=== PATIENT | male | born 1965 | race Caucasian/White ===

== ENCOUNTER 2020-01-05 16:00 | Outpatient (RCR) | payer OTHER, SELFPAY ==
--- NOTE | 2019-12-29 16:00 | HP.PTEVAL_ITS ---
Patient's Visit Information HARMONY REDDY is a 54 year old M referred to Physical Therapy by KIMI FELDMAN with a diagnosis of arthrits psoriatic. Date of Evaluation: 12/29/19 Physical Therapist: Reid Moreno, DENEENT, OCS, CSCS - Visit Plan Frequency: 3x /Week Duration: 4-6 Weeks Plan: 3x/week for 4-6 weeks for pool based... HS, piriformis, quad and pec stretching. postural and RC and hip, core knee strengthening. General ex adn Motion ex in water and progression to I. - Subjective Psoriatic arthritis. Neck hurts from arthiritis. LB has 3 spots and hips and R foot hurts. Had pains for a long time chronic. was doing therapy in [facility] and they shut down when Covid started. He had to stop a lot of treatments including water ex. Today is a good day. Gets IV at [facility] for [facility] every 6 weeks. [place] like shit for long time but today is OK. Can't walk a lot due to R foot pain. Neck pain to 09/10 into L scapula creating L arm numbness. Not bad today. LBP see chirpractor but was very bad prior toward 03/12. Acupunture helps also. Hips: L painful laterally , R one not as much. R foot hurts also intermittently to 10/10 and has history of foot fusion surgery. Sleep is never great as he worked 3rd shift, retired from [employer] as he worked with [employer]. Shoulders sometimes wake him up. Basic ADLs are getting done, if in a lot of pain can need help. Hobbies: computer in bed alot - Pain LBP Pain Intensity (Out of 10): 0 Pain Intensity Range: 0, 8 Neck pain Pain Intensity (Out of 10): 0 Pain Intensity Range: 0, 4 - Objective Ambulates I but limps on R foot, trasnfers I. steps with UE pulling himself up. Cervical AROM is full and painfree today. Low back AROM mod limitations ext adn flexion, Min in SB. Not painful. reflexes 2/3 patella and achilles and bi and tri. Sensation WNL to gross light touch in UE and LE. strength R ankle PF 3-, DF painful and 3/5, No aROM into ev/inv R ankle. L ankle 4-/5. knees $ r ext adn 4+ flexion, L knee ext 4- adn 4 flexion. hips 4- abd and ext and has some pain laterally. UE aROM WFL and pain with long lever arm resisted flexiona dn abduction, otherwise does well with 4/5 strength. Tightness in piriformis and quads moderately, HS minimally, gastroc B moderately - Balance Scores Functional Gait Assessment Score: 23 % Disability: 23.3400 - Goals Goal 1:: I approp HEp in pool of community to minimize future problems Goal Time Frame: 4-6 Weeks Goal 2:: Pt feel 75% better with pain no greater than 3/10 Goal Time Frame: 4-6 Weeks Goal 3:: LEFS score 40 or hgiher. Goal Time Frame: 4-6 Weeks - Rehabilitation Potential Physical Therapy Diagnosis: widespread pain Rehabilitation Potential: Fair - Anticipated Interventions Patient/Client Instruction: Educate patient on: Condition, Plan of Care For the Purpose of:: To decrease pain, To increase ROM, To improve muscle performance and motor function, To increase tolerance to act ivity/condition/position Therapeutic Exercise to Include: Strength training, Postural training, Flexibilty training, Gait and locomotor training, Neuromotor development, In an aquatic setting, Passive ROM, Active ROM, Dynamic Lumbar Stabilization For the Purpose of:: To decrease pain, To increase ROM, To improve muscle performance and motor function, To increase tolerance to activity/condition/position Thank you for the opportunity to evaluate your patient. For Medicare and Medicare HMO plans, please review the plan of care and approve it. It will need to be FAXED BACK to us at [phone] for Medicare purposes. For Medicare only, by signing this I certify the plan of care. Please let me know if there are questions or concerns regarding this plan of care. Physician Signature: Date:
--- NOTE | 2020-01-11 13:18 | HP.PT.NRP ---
HARMONY REDDY was seen in my office for initial evaluation on 12/29/19. The following Plan of Care was established for this patient: Initial Frequency: 3x /Week Initial Duration: 4-6 Weeks Patient/Client Instruction: Educate patient on: Condition, Plan of Care For the Purpose of:: To decrease pain, To increase ROM, To improve muscle performance and motor function, To increase tolerance to activity/condition/position Therapeutic Exercise to Include: Strength training, Postural training, Flexibilty training, Gait and locomotor training, Neuromotor development, In an aquatic setting, Passive ROM, Active ROM, Dynamic Lumbar Stabilization For the Purpose of:: To decrease pain, To increase ROM, To improve muscle performance and motor function, To increase tolerance to activity/condition/position This patient was last seen in our office 01/05/20. Pertinent comments regarding their Physical therapy will appear below: Pt seen for two visits of POC and has called to cancel the rest of his visits. He will not be returning. At this point I will be discontinuing this patient from physical therapy. I would be happy to see this patient again in the future if found appropriate by the physician. Thank you! Reid Moreno, DPT, OCS, CSCS
== END 2020-01-05 19:00 | disposition home or self-care (01) ==
LOC: PT 16:00
PROVIDERS: PCP Family Medicine
DX: L40.50 Arthropathic psoriasis, unspecified (principal)
CPT/HCPCS: 97113; 97162

== ENCOUNTER 2020-11-08 11:24 | Emergency (ER) | payer OTHER, SELFPAY ==
[2020-11-08 11:25] VITALS: BP 116/86; PULSE 86; RESP 15; TEMP 36.7; O2SAT 98; BMI 28.7
--- NOTE | 2020-11-08 11:38 | CT_ITS ---
STUDY: CT CERVICAL SPINE WITHOUT CONTRAST REASON FOR EXAM: Male, 55 years old. Injury/Pain following a fall. RADIATION DOSAGE (If Supplied By Facility): CTDIvol = ( 29.31 ) mGy, DLP = ( 1292.06 ) mGycm TECHNIQUE: High resolution transaxial imaging was performed without contrast material. Sagittal and coronal images were reconstructed. Individualized dose optimization techniques were used for this CT. COMPARISON: None FINDINGS: Normal craniovertebral junction. Normal anterior atlantoaxial articulation. Normal odontoid process. There is straightening of the normal cervical lordosis. Normal vertebral bodies and posterior osseous elements. C2-3: Normal endplates. Normal disc height and morphology. Normal central canal and intervertebral neuroforamina. C3-4: Facet joint osteoarthritis and hypertrophy worse on the left side. Minimal left neural foraminal stenosis. C4-5: Facet joint osteoarthritis and hypertrophy more prominent on the right side. Mild to moderate degree of right neural foraminal stenosis. C5-6: There is a marked degree of disc space narrowing with spondylosis. Uncovertebral arthrosis. Moderate to severe bilateral neural foraminal stenosis worse on the left side. C6-7: Marked degree of disc space narrowing with facet joint osteoarthritis and spondylosis. No significant stenosis seen. There is a 4.1 cm cyst in the posterior aspect of the C6 vertebrae on the left side. C7-T1: Normal endplates. Normal disc height and morphology. Normal central canal and intervertebral neuroforamina. Normal visualized soft tissue structures. CT/Spine Cervical without Contras IMPRESSION: Multilevel degenerative changes, as described above. Electronically Signed: Khurram Saldana MD at 12:17 EDT , Service support ,
--- NOTE | 2020-11-08 11:38 | RAD_ITS ---
STUDY: X-RAY - RIGHT FOOT CLINICAL: Male, 55 years old. Injury/Pain TECHNIQUE: 3 view(s) of the foot. COMPARISON: None. FINDINGS: Normal talus, calcaneus, and tarsal bones. The patient is status post screw fixation of the talotibial navicular joint as well as the table cuneiform joint. Normal metatarsi. Normal metatarsophalangeal joint of the great toe. Normal tibial and fibular sesamoid bones. Normal interphalangeal joint of the great toe. Normal phalanges of the great toe. Normal second through fifth metatarsophalangeal joints. Normal interphalangeal joints and phalanges of the lesser toes. The soft tissue structures are unremarkable. RAD/Foot min 3 Views IMPRESSION: No acute abnormality is seen. Electronically Signed: Khurram Saldana MD at 12:20 EDT , Service support ,
--- NOTE | 2020-11-08 11:38 | RAD_ITS ---
STUDY: X-RAY - RIGHT ANKLE REASON FOR EXAM: Male, 55 years old. Injury/Pain TECHNIQUE: 3 view(s) of the ankle. COMPARISON: None. FINDINGS: Normal visualized distal tibia and fibula. Normal medial and lateral malleoli. Normal tibiotalar articulation and ankle mortise. Normal visualized talus and calcaneus. Status post fusion and screw fixation of the table navicular and talar cuneiform bones. Lateral soft tissue swelling. RAD/Ankle min 3 Views IMPRESSION: Lateral soft tissue swelling. Prior fusion as described. Electronically Signed: Khurram Saldana MD at 12:21 EDT , Service support ,
--- NOTE | 2020-11-08 11:38 | RAD_ITS ---
STUDY: X-RAY - RIGHT SHOULDER REASON FOR EXAM: Male, 55 years old. Injury/Pain TECHNIQUE: 4 view(s) of the shoulder. COMPARISON: None. FINDINGS: There is moderate degenerative arthrosis of the glenohumeral articulation. There is hypertrophic osteoarthrosis of the acromioclavicular joint with inferior osseous spur formation. Normal acromion. Decreased distance between the humeral head in the acromion suggestive of rotator cuff pathology. Normal humeral head and visualized proximal humerus. The soft tissue structures are unremarkable. Normal visualized pulmonary apex. RAD/Shoulder min 2 Views IMPRESSION: Degenerative changes. Findings suggestive of rotator cuff pathology. Electronically Signed: Khurram Saldana MD at 12:19 EDT , Service support ,
--- NOTE | 2020-11-08 11:41 | ED.VIS.FALL ---
HPI HPI - Fall History of Present Illness Chief Complaint: Fall Informant: patient and spouse/S.O. Narrative Narrative: Patient is a 55-year-old male with history of psoriatic arthritis presenting for injuries after fall. Patient was getting out of the car and the [facility] when he tripped and fell. That he did hit his head and thinks he lost consciousness for couple seconds. He broke his glasses from when he hit his head. He is complaining of pain and swelling around his right eye as well as pain of his right shoulder, right elbow and right ankle/foot. He notes he had surgery on his foot about 30 years ago and his proximal foot bones are fused together and he has a chronic deformity of his ankle joint. Patient has pain with range of motion of his ankle and swelling which is new. He notes he has chronic deformity/swelling of the top of his foot. He denies associated numbness or tingling. Is not any blood thinners. Is not sure his last tetanus was. No other complaints at this time. Patient states he is currently on a course of prednisone for flare of his arthritis. Tetanus Immunization: Unknown [facility] Medical History Fatty liver Home Medications cyclobenzaprine 10 mg PO QHS 11/08/20 [History Last Taken Unknown] diclofenac sodium ea TOPICAL 11/08/20 [History Last Taken Unknown] lisinopril 20 mg PO DAILY 11/08/20 [History Last Taken Unknown] oxycodone-acetaminophen [Percocet] 1 tab PO Q6H PRN 3 Days #12 tab 11/08/20 [Rx Last Taken Unknown] paroxetine HCl 30 mg PO DAILY 11/08/20 [History Last Taken Unknown] prednisone 10 mg PO DAILY 11/08/20 [History Last Taken Unknown] sulfasalazine 0.5 g PO BID 11/08/20 [History Last Taken Unknown] tamsulosin 0.4 mg PO DAILY 11/08/20 [History Last Taken Unknown] Allergy/AdvReac Type Severity Reaction Status Date / Time adhesive Allergy Rash Verified 11/08/20 11:27 adhesive tape Allergy Hives Verified 11/08/20 11:27 Surgical History H/O rotator cuff surgery History of ankle surgery History of umbilical hernia repair Social History Smoking Status: Never smoker ROS ROS ED Constitutional Constitutional ED: Reports frequent falls; Denies fever(s) Eyes Eyes: Denies change in vision or eye pain ENT ENT ED: Denies dental pain, mouth lesions or nasal trauma Cardiovascular Cardiovascular: Denies chest pain or syncope Respiratory/Chest Respiratory/Chest: Denies cough or dyspnea Gastrointestinal Gastrointestinal: Denies abdominal pain or nausea Genitourinary Genitourinary ED: Denies dysuria or hematuria Musculoskeletal Musculoskeletal: Reports arthralgias, myalgias and other Details: Right shoulder, elbow, ankle and foot ; Denies back pain Integumentary Reports Abrasions; Denies wounds Neurologic Neurologic: Denies headache(s), paresthesias or weakness Psychiatric Psychiatric: Denies anxiety or depression Hematologic/Lymphatic Hematologic/Lymphatic: Denies easy bleeding or easy bruising EXAM Physical Exam Const Vital Signs: 11/08/20 11:25 11/08/20 11:32 Temperature 98.1 F Temperature Source Temporal Pulse Rate 86 Respiratory Rate 15 Respiratory Effort Normal Respiratory Depth Normal Respiratory Pattern Normal Blood Pressure 116/86 H Blood Pressure Mean 96 Pulse Ox 98 Oxygen Delivery Method Room Air Room Air HEENT Reports normocephalic and TM's clear trauma Tympanic Membrane ED: Yes TM's clear Eyes PERRL and EOMs intact bilaterally Eyes Narrative: Mild swelling and bruising of the right lateral periorbital area Neck full ROM and supple General: Negative for tenderness Chest Wall inspection of chest normal and palpation of chest normal Resp normal respiratory effort and clear to auscultation bilaterally Cardio regular rate and regular rhythm Cardio Narrative: 2+ bilateral DP and PT pulses GI non-tender Palpation: soft Back/Spine Cervical Spine: Negative for cervical spine tenderness Thoracic Spine / Upper Back: Negative for thoracic spinal tenderness Lumbar Spine / Lower Back: Negative for lumbar spinal tenderness Extremity normal capillary refill Extremity Narrative: Diffuse tenderness palpation of the right shoulder. Patient unable to raise his arm through range of motion secondary to pain. Mild tenderness palpation diffusely of the right elbow but no pain with complete range of motion. Tender to palpation of the right medial ankle with some associated soft tissue swelling. Tenderness palpation diffusely of the proximal dorsal foot. No obvious deformity. No tenderness palpation of the knee or proximal fibula. chronic appearing changes of the forefoot from prior surgery. Normal Barclay test. General Extremety ED: Yes normal exam except as noted General Extremity: normal exam except as noted Skin Skin Narrative: Scattered abrasions over right knee and right elbow MDM MDM MDM Narrative Medical decision making narrative: Patient evaluated after mechanical fall. He did hit his head. Is not on any anticoagulation however he did have questionable loss of consciousness for couple seconds. Head CT obtained which does not show any acute intracranial process. No acute fracture seen on and patient agrees with this. C-spine CT. X-rays obtained of the right shoulder which show some rotator cuff pathology however I suspect this is more chronic. Patient is now some soft tissue swelling of the right ankle consistent with a sprain. No acute fracture seen. Patient is placed in Jennifer wrap. He is also offered an air stirrup but declines it. He states he has crutches and other mobilization devices at home. He is given dose of morphine and will be discharged home with a short course of Percocet for pain control. [facility] also [facility] to [facility]. Patient is counseled on signs and symptoms requiring return to the emergency room. Patient verbalizes agreement and understand this plan. Patient discharged home in stable and improved condition. Radiography Diagnostic Testing: Radiology Impression Ankle X-Ray 11/08/20 11:38 IMPRESSION: Lateral soft tissue swelling. Prior fusion as described. Electronically Signed: Khurram Saldana MD at 12:21 EDT , Service support , Cervical Spine CT 11/08/20 11:38 IMPRESSION: Multilevel degenerative changes, as described above. Electronically Signed: Khurram Saldana MD at 12:17 EDT , Service support , Foot X-Ray 11/08/20 11:38 IMPRESSION: No acute abnormality is seen. Electronically Signed: Khurram Saldana MD at 12:20 EDT , Service support , Shoulder X-Ray 11/08/20 11:38 IMPRESSION: Degenerative changes. Findings suggestive of rotator cuff pathology. Electronically Signed: Khurram Saldana MD at 12:19 EDT , Service support , Brain CT 11/08/20 12:00 IMPRESSION: Normal unenhanced CT scan of the brain. Electronically Signed: Khurram Saldana MD at 12:18 EDT , Service support , Treatment and Re-Evaluation Comments:: Morphine, Jennifer wrap to ankle, dc home Discharge Plan Triage Chief Complaint: Fall ED Provider: Tika Chacko Dx/Rx/DC Orders Clinical Impression: Sprain of ankle, right, Injury of right shoulder Instructions: ED Mechanical Fall Prescriptions: New oxycodone-acetaminophen [Percocet] 5-325 mg tablet 1 tab PO Q6H PRN (Reason: pain) 3 Days Qty: 12 RF: 0 No Action cyclobenzaprine 10 mg Tablet 10 mg PO QHS RF: 0 prednisone 10 mg Tablet 10 mg PO DAILY RF: 0 lisinopril 20 mg Tablet 20 mg PO DAILY RF: 0 sulfasalazine 500 mg Tablet,Delayed Release (Dr/Ec) 0.5 g PO BID RF: 0 tamsulosin 0.4 mg Capsule 0.4 mg PO DAILY RF: 0 paroxetine HCl 30 mg Tablet 30 mg PO DAILY RF: 0 diclofenac sodium 1 % Gel TOPICAL RF: 0 [facility] Provider[facility] Referrals: Chelita Hare DPM [STAFF PHYSICIAN] - [facility] [[facility] - Disposition Disposition: Home, self care
[2020-11-08] MEDS: Diphth,Pertuss(Acell),Tet Vac 0.5 ML Vial IM (11:49)
[2020-11-08] MEDS: Morphine 4 MG/ML Syringe 6 MG IM (11:50)
--- NOTE | 2020-11-08 12:00 | CT_ITS ---
STUDY: CT BRAIN WITHOUT CONTRAST REASON FOR EXAM: Male, 55 years old. Injury/Pain following a fall. RADIATION DOSAGE (If Supplied By Facility): CTDIvol = ( 44.99 ) mGy, DLP = ( 796.11 ) mGycm TECHNIQUE: Transaxial CT imaging of the brain was performed without administration of intravenous contrast material. Individualized dose optimization techniques were used for this CT. COMPARISON: No relevant priors. FINDINGS: Normal soft tissue structures. Normal calvarium. Normal size ventricles and extra-axial spaces for the patient''s age. Normal white matter tracts of the cerebral hemispheres. Normal basal ganglia and thalami. Normal brainstem. Normal cerebellum. There is no intracranial hemorrhage. There are no findings of an acute ischemic infarction. Normal visualized paranasal sinuses. CT/Brain/Head without Contrast IMPRESSION: Normal unenhanced CT scan of the brain. Electronically Signed: Khurram Saldana MD at 12:18 EDT , Service support ,
[2020-11-08] MEDS: oxyCODONE 5 MG Tablet PO (13:40)
[2020-11-08 13:43] VITALS: PULSE 67; RESP 16; O2SAT 97
== END 2020-11-08 13:44 | disposition home or self-care (01) ==
PROVIDERS: Emergency Provider Emergency Medicine
DX: S93.401A Sprain of unspecified ligament of right ankle, initial encounter (principal); S49.91XA Unspecified injury of right shoulder and upper arm, initial encounter; W01.0XXA Fall on same level from slipping, tripping and stumbling without subsequent striking against object, initial encounter; Z79.899 Other long term (current) drug therapy
CPT/HCPCS: 70450; 72125; 73030; 73610; 73630; 90471; 90715; 96372; 99283